=== PATIENT | female | born 1975 | race Caucasian/White ===

== ENCOUNTER → 2018-02-14 10:47 | Outpatient (CLI) | payer BC, SELFPAY ==
[2018-02-14 11:07] LABS: Basophils % 0.3 % (0.1-2.0); Eosinophils # 0.2 K/mm3 (0.0-0.4); Eosinophils % 2.6 % (0.1-12.0); Hematocrit 41.3 % (37.0-47.0); Hemoglobin 13.5 g/dL (12.2-16.2); Lymphocytes % 34.3 K/mm3 (10-50); Mean Corpuscular HGB Conc 32.6 g/dL (31.8-35.4); Mean Corpuscular Hemoglobin 28.8 pg (27.0-31.2); Mean Corpuscular Volume 88.3 fl (81-99); Monocytes # 0.4 K/mm3 (0.1-1.0); Monocytes % 6.3 % (1.7-9.3); Neutrophils # 3.3 K/mm3 (1.8-7.8); Neutrophils % 56.4 % (37.0-80.0); Platelet Count 346 K/mm3 (142-424); Red Blood Count 4.68 M/mm3 (4.20-5.40); Red Cell Distribution Width 12.8 % (11.5-17.5); White Blood Count 5.8 K/mm3 (4.8-10.8)
[2018-02-14 12:01] LABS: Alanine Aminotransferase 30 U/L (12-78); Albumin Level 3.4 gm/dL (3.4-5.0); Albumin/Globulin Ratio 0.9 (1.1-1.8); Alkaline Phosphatase 56 U/L (46-116); Anion Gap 6.3 mEq/L (5-15); Aspartate Amino Transferase 10 U/L (15-37); Bilirubin,Total 0.3 mg/dL (0.2-1.0); Blood Urea Nitrogen 9 mg/dL (7-18); Calcium 8.5 mg/dL (8.5-10.1); Carbon Dioxide 31 mmol/L (21.0-32.0); Chloride 105 mmol/L (98-107); Chol/HDL Ratio 5.2 (1-3.5); Cholesterol 197 mg/dL (140-200); Creatinine,Serum 0.83 mg/dL (0.55-1.02); Estimated Glomerular Filt Rate 76 ml/min (>60); GFR (African American) 92 ML/MIN (>60); Globulin 3.7 gm/dl (1.3-3.2); Glucose 94 mg/dL (74-106); HDL Cholesterol 38 mg/dL (29-89); LDL Cholesterol 136 mg/dL (0-130); Potassium 4.3 mmoL/L (3.5-5.1); Sodium 138 mmol/L (136-145); Thyroid Stimulating Hormone 2.71 uIU/ml (0.358-3.740); Total Protein,Serum 7.1 gm/dL (6.4-8.2); Triglycerides 114 mg/dL (30-200); VLDL Cholesterol 23 mg/dL (0-40)
== END ==
PROVIDERS: Visit Provider Nurse Practitioner Family
DX: E78.2 Mixed hyperlipidemia (principal); E03.9 Hypothyroidism, unspecified
CPT/HCPCS: 36415; 80053; 80061; 84443; 85025

== ENCOUNTER → 2018-06-03 10:13 | Outpatient (CLI) | payer BC, SELFPAY | PROVIDERS: Visit Provider Specialist | DX: G47.33 Obstructive sleep apnea (adult) (pediatric) (principal) | CPT/HCPCS: 94762 ==

== ENCOUNTER → 2019-04-04 10:59 | Outpatient (CLI) | payer BC, SELFPAY ==
[2019-04-04 12:10] LABS: Basophils % 0.6 % (0.1-2.0); Eosinophils # 0.1 K/mm3 (0.0-0.4); Eosinophils % 2.1 % (0.1-12.0); Hematocrit 43.4 % (37.0-47.0); Hemoglobin 13.9 g/dL (12.2-16.2); Lymphocytes # 2.4 K/mm3 (0.7-4.5); Mean Corpuscular Hemoglobin 29.8 pg (27.0-31.2); Monocytes # 0.3 K/mm3 (0.1-1.0); Monocytes % 4.6 % (1.7-9.3); Neutrophils % 51.7 % (37.0-80.0); Platelet Count 313 K/mm3 (142-424); Red Blood Count 4.66 M/mm3 (4.20-5.40); Red Cell Distribution Width 12.5 % (11.5-17.5); White Blood Count 5.8 K/mm3 (4.8-10.8)
[2019-04-04 13:48] LABS: Alanine Aminotransferase 21 U/L (12-78); Albumin Level 3.4 gm/dL (3.4-5.0); Albumin/Globulin Ratio 0.9 (1.1-1.8); Alkaline Phosphatase 44 U/L (46-116); Anion Gap 9.5 mEq/L (5-15); Aspartate Amino Transferase 15 U/L (15-37); Bilirubin,Total 0.5 mg/dL (0.2-1.0); Blood Urea Nitrogen 11 mg/dL (7-18); Calcium 8.5 mg/dL (8.5-10.1); Carbon Dioxide 30 mmol/L (21.0-32.0); Chloride 104 mmol/L (98-107); Chol/HDL Ratio 5.2 (1-3.5); Cholesterol 187 mg/dL (140-200); Creatinine,Serum 0.81 mg/dL (0.55-1.02); Estimated Glomerular Filt Rate 78 ml/min (>60); GFR (African American) 94 ML/MIN (>60); Globulin 3.8 gm/dl (1.3-3.2); Glucose 84 mg/dL (74-106); HDL Cholesterol 36 mg/dL (29-89); LDL Cholesterol 133 mg/dL (0-130); Potassium 4.5 mmoL/L (3.5-5.1); Sodium 139 mmol/L (136-145); Thyroid Stimulating Hormone 2.89 uIU/ml (0.358-3.740); Total Protein,Serum 7.2 gm/dL (6.4-8.2); Triglycerides 91 mg/dL (30-200); VLDL Cholesterol 18 mg/dL (0-40)
== END ==
PROVIDERS: Visit Provider Nurse Practitioner Family
DX: E78.2 Mixed hyperlipidemia (principal); E03.9 Hypothyroidism, unspecified; G47.33 Obstructive sleep apnea (adult) (pediatric)
CPT/HCPCS: 36415; 80053; 80061; 84443; 85025

== ENCOUNTER → 2020-05-14 09:57 | Outpatient (CLI) | payer BC, SELFPAY ==
[2020-05-14 10:51] LABS: Basophils % 0.3 % (0.1-2.0); Eosinophils # 0.2 K/mm3 (0.0-0.4); Eosinophils % 2.7 % (0.1-12.0); Hemoglobin 14.4 g/dL (12.2-16.2); Lymphocytes % 33.5 % (10-50); Mean Corpuscular HGB Conc 33.4 g/dL (31.8-35.4); Mean Corpuscular Hemoglobin 30.8 pg (27.0-31.2); Mean Corpuscular Volume 92.2 fl (81-99); Mean Platelet Volume 8.1 fl (7.4-10.4); Monocytes # 0.3 K/mm3 (0.1-1.0); Monocytes % 5.5 % (1.7-9.3); Neutrophils # 3.5 K/mm3 (1.8-7.8); Platelet Count 333 K/mm3 (142-424); Red Blood Count 4.67 M/mm3 (4.20-5.40)
[2020-05-14 11:08] LABS: Alanine Aminotransferase 18 U/L (12-78); Albumin Level 3.9 g/dl (3.5-5.0); Albumin/Globulin Ratio 1.2 (1.1-1.8); Alkaline Phosphatase 47 U/L (38-126); Anion Gap 13.3 mEq/L (5-15); Aspartate Amino Transferase 21 U/L (14-36); Bilirubin,Total 0.4 mg/dl (0.2-1.3); Blood Urea Nitrogen 16 mg/dl (7-17); Calcium 9.3 mg/dl (8.4-10.2); Carbon Dioxide 28 mmol/L (22.0-30.0); Chloride 104 mmol/L (98-107); Chol/HDL Ratio 6.2 (1-3.5); Cholesterol 191 mg/dl (140-200); Estimated Glomerular Filt Rate 69 ml/min (>60); GFR (African American) 83 ML/MIN (>60); Globulin 3.2 g/dL (1.3-3.2); Glucose 95 mg/dl (74-100); HDL Cholesterol 31 mg/dl (40-60); Potassium 4.3 mmoL/L (3.5-5.1); Sodium 141 mmol/L (136-145); Total Protein,Serum 7.1 g/dl (6.3-8.2); Triglycerides 176 mg/dl (30-150); VLDL Cholesterol 35 mg/dL (0-40)
[2020-05-14 11:18] LABS: Direct LDL Cholesterol 130.54 mg/dL (100-129)
[2020-05-14 11:39] LABS: Thyroid Stimulating Hormone 3.72 uIU/mL (0.465-4.68)
== END ==
PROVIDERS: Visit Provider Nurse Practitioner Family
DX: E78.5 Hyperlipidemia, unspecified (principal); E03.9 Hypothyroidism, unspecified; G47.33 Obstructive sleep apnea (adult) (pediatric)
CPT/HCPCS: 36415; 80053; 80061; 84443; 85025

== ENCOUNTER → 2021-04-08 10:19 | Outpatient (CLI) | payer BC, SELFPAY ==
[2021-04-08 11:12] LABS: Basophils # 0.1 K/mm3 (0-0.2); Basophils % 0.9 % (0.1-2.0); Eosinophils # 0.2 K/mm3 (0.0-0.4); Eosinophils % 3.1 % (0.1-12.0); Hematocrit 44.5 % (37.0-47.0); Hemoglobin 14.5 g/dL (12.2-16.2); Lymphocytes # 2.2 K/mm3 (0.7-4.5); Lymphocytes % 41.3 % (10-50); Mean Corpuscular HGB Conc 32.6 g/dL (31.8-35.4); Mean Corpuscular Hemoglobin 30.9 pg (27.0-31.2); Mean Corpuscular Volume 94.7 fl (81-99); Mean Platelet Volume 8.1 fl (7.4-10.4); Monocytes # 0.3 K/mm3 (0.1-1.0); Monocytes % 6.1 % (1.7-9.3); Neutrophils # 2.6 K/mm3 (1.8-7.8); Neutrophils % 48.5 % (37.0-80.0); Platelet Count 359 K/mm3 (142-424); Red Cell Distribution Width 12.8 % (11.5-17.5); White Blood Count 5.4 K/mm3 (4.8-10.8)
[2021-04-08 11:47] LABS: Chloride 104 mmol/L (98-107); Potassium 4.6 mmoL/L (3.5-5.1); Sodium 139 mmol/L (136-145)
[2021-04-08 11:49] LABS: Blood Urea Nitrogen 9 mg/dl (7-17)
[2021-04-08 11:50] LABS: Alanine Aminotransferase 38 U/L (12-78); Albumin Level 3.5 g/dl (3.5-5.0); Albumin/Globulin Ratio 1.1 (1.1-1.8); Alkaline Phosphatase 53 U/L (38-126); Anion Gap 11.6 mEq/L (5-15); Aspartate Amino Transferase 34 U/L (14-36); Bilirubin,Total 0.3 mg/dl (0.2-1.3); Calcium 8.7 mg/dl (8.4-10.2); Carbon Dioxide 28 mmol/L (22.0-30.0); Cholesterol 192 mg/dl (140-200); Estimated Glomerular Filt Rate 78 ml/min (>60); GFR (African American) 95 ML/MIN (>60); Globulin 3.1 g/dL (1.3-3.2); Glucose 97 mg/dl (74-100); Total Protein,Serum 6.6 g/dl (6.3-8.2); Triglycerides 145 mg/dl (30-150); VLDL Cholesterol 29 mg/dL (0-40)
[2021-04-08 11:51] LABS: Chol/HDL Ratio 6.4 (1-3.5); HDL Cholesterol 30 mg/dl (40-60)
[2021-04-08 12:02] LABS: Direct LDL Cholesterol 128.13 mg/dL (100-129)
== END ==
PROVIDERS: Visit Provider Nurse Practitioner Family
DX: Z00.00 Encounter for general adult medical examination without abnormal findings (principal); E03.9 Hypothyroidism, unspecified
CPT/HCPCS: 36415; 80053; 80061; 84443; 85025

== ENCOUNTER → 2021-08-28 10:57 | Outpatient (CLI) | payer BC, SELFPAY ==
--- NOTE | 2021-08-28 11:02 | MM_ITS ---
PROCEDURE INFORMATION: Exam: MG Bilateral Screening 3D Mammography Exam date and time: 08/28/2021 11:02 AM Age: 46 years old Clinical indication: Encounter for screening mammogram for malignant neoplasm of breast TECHNIQUE: Imaging protocol: Bilateral Screening tomosynthesis and 2D mammography including computer-aided detection (CAD) when performed. COMPARISON: No relevant prior studies available. FINDINGS: MAMMOGRAPHY: Breast composition: The breast tissue is composed of scattered areas of fibroglandular density. Mass: None. Architectural distortion: None. Calcifications: No suspicious calcifications. Asymmetric density: None. Skin thickening: None. Axillary adenopathy: None. IMPRESSION: No mammographic evidence of malignancy. Annual screening is recommended unless otherwise clinically indicated. ASSESSMENT: BI-RADS Category 1: Negative
== END ==
PROVIDERS: PCP Nurse Practitioner Family; Visit Provider Nurse Practitioner Family
DX: Z12.31 Encounter for screening mammogram for malignant neoplasm of breast (principal)
CPT/HCPCS: 77063; 77067

== ENCOUNTER → 2022-02-28 10:14 | Outpatient (CLI) | payer BC, SELFPAY ==
[2022-02-28 11:01] LABS: Basophils # 0.1 K/mm3 (0-0.2); Basophils % 1.2 % (0.1-2.0); Eosinophils # 0.1 K/mm3 (0.0-0.4); Eosinophils % 2.5 % (0.1-12.0); Hemoglobin 14.3 g/dL (12.2-16.2); Lymphocytes # 1.9 K/mm3 (0.7-4.5); Lymphocytes % 31.6 % (10-50); Mean Corpuscular HGB Conc 30.4 g/dL (31.8-35.4); Mean Corpuscular Hemoglobin 29.7 pg (27.0-31.2); Mean Corpuscular Volume 97.5 fl (81-99); Mean Platelet Volume 8.2 fl (7.4-10.4); Monocytes # 0.4 K/mm3 (0.1-1.0); Neutrophils # 3.4 K/mm3 (1.8-7.8); Neutrophils % 58.7 % (37.0-80.0); Platelet Count 323 K/mm3 (142-424); Red Blood Count 4.82 M/mm3 (4.20-5.40); White Blood Count 5.9 K/mm3 (4.8-10.8)
[2022-02-28 11:47] LABS: Chloride 106 mmol/L (98-107); Potassium 4.3 mmoL/L (3.5-5.1); Sodium 139 mmol/L (136-145)
[2022-02-28 11:50] LABS: Alanine Aminotransferase 50 U/L (12-78); Albumin/Globulin Ratio 1.3 (1.1-1.8); Alkaline Phosphatase 61 U/L (38-126); Anion Gap 11.3 mEq/L (5-15); Aspartate Amino Transferase 41 U/L (14-36); Blood Urea Nitrogen 16 mg/dl (7-17); Calcium 8.7 mg/dl (8.4-10.2); Carbon Dioxide 26 mmol/L (22.0-30.0); Estimated Glomerular Filt Rate 68 ml/min (>60); GFR (African American) 82 ML/MIN (>60); Globulin 3.1 g/dL (1.3-3.2); Glucose 101 mg/dl (74-100); Total Protein,Serum 7.1 g/dl (6.3-8.2)
[2022-02-28 11:53] LABS: Bilirubin,Total < 0.1 mg/dl (0.2-1.3)
[2022-02-28 12:21] LABS: Thyroid Stimulating Hormone 3.58 uIU/mL (0.465-4.68)
[2022-02-28 13:16] LABS: Vitamin B12 518 pg/mL (239-931)
[2022-02-28 13:18] LABS: Folate > 20.00 ng/mL
[2022-03-01 08:15] LABS: Triiodothyronine (T3) Free 2.9 pg/mL (2.0-4.4)
== END ==
PROVIDERS: PCP Nurse Practitioner Family; Visit Provider Specialist
DX: E03.9 Hypothyroidism, unspecified (principal); G47.10 Hypersomnia, unspecified
CPT/HCPCS: 36415; 80053; 82607; 82746; 84443; 84481; 85025

== ENCOUNTER → 2022-08-11 10:06 | Outpatient (CLI) | payer BC, SELFPAY ==
[2022-08-11 11:12] LABS: Basophils # 0.1 K/mm3 (0-0.2); Basophils % 1.1 % (0.1-2.0); Eosinophils # 0.2 K/mm3 (0.0-0.4); Hematocrit 44.7 % (37.0-47.0); Hemoglobin 14.6 g/dL (12.2-16.2); Lymphocytes # 1.9 K/mm3 (0.7-4.5); Lymphocytes % 36.4 % (10-50); Mean Corpuscular HGB Conc 32.5 g/dL (31.8-35.4); Mean Corpuscular Hemoglobin 30.5 pg (27.0-31.2); Mean Corpuscular Volume 93.8 fl (81-99); Mean Platelet Volume 8.2 fl (7.4-10.4); Monocytes # 0.3 K/mm3 (0.1-1.0); Monocytes % 6.3 % (1.7-9.3); Neutrophils # 2.7 K/mm3 (1.8-7.8); Neutrophils % 53.2 % (37.0-80.0); Platelet Count 339 K/mm3 (142-424); Red Blood Count 4.77 M/mm3 (4.20-5.40); Red Cell Distribution Width 12.9 % (11.5-17.5); White Blood Count 5.1 K/mm3 (4.8-10.8)
[2022-08-11 11:56] LABS: Chloride 107 mmol/L (98-107); Potassium 4.3 mmoL/L (3.5-5.1); Sodium 141 mmol/L (136-145)
[2022-08-11 11:59] LABS: Alanine Aminotransferase 41 U/L (12-78); Albumin Level 3.8 g/dl (3.5-5.0); Albumin/Globulin Ratio 1.2 (1.1-1.8); Alkaline Phosphatase 53 U/L (38-126); Anion Gap 12.3 mEq/L (5-15); Aspartate Amino Transferase 33 U/L (14-36); Bilirubin,Total 0.4 mg/dl (0.2-1.3); Blood Urea Nitrogen 14 mg/dl (7-17); Calcium 8.3 mg/dl (8.4-10.2); Carbon Dioxide 26 mmol/L (22.0-30.0); Cholesterol 186 mg/dl (140-200); Estimated Glomerular Filt Rate 68 ml/min (>60); GFR (African American) 82 ML/MIN (>60); Globulin 3.2 g/dL (1.3-3.2); Glucose 84 mg/dl (74-100); HDL Cholesterol 32 mg/dl (40-60); Triglycerides 102 mg/dl (30-150); VLDL Cholesterol 20 mg/dL (0-40)
[2022-08-11 12:00] LABS: Chol/HDL Ratio 5.8 (1-3.5)
[2022-08-11 12:11] LABS: Direct LDL Cholesterol 129.42 mg/dL (100-129)
[2022-08-11 12:17] LABS: Free T4 (Free Thyroxine) 1.12 ng/dl (0.78-2.19)
[2022-08-11 12:30] LABS: Thyroid Stimulating Hormone 3.03 uIU/mL (0.465-4.68)
== END ==
PROVIDERS: PCP Nurse Practitioner Family; Visit Provider Nurse Practitioner Family
DX: E03.9 Hypothyroidism, unspecified (principal); E78.5 Hyperlipidemia, unspecified; R05.3 Chronic cough; L30.9 Dermatitis, unspecified
CPT/HCPCS: 36415; 80053; 80061; 84439; 84443; 85025

== ENCOUNTER → 2023-04-12 15:56 | Outpatient (CLI) | payer BC, SELFPAY ==
--- NOTE | 2023-04-12 15:59 | MM_ITS ---
PROCEDURE INFORMATION: Exam: MG Bilateral Screening 3D Mammography Exam date and time: 04/12/2023 3:49 PM Age: 47 years old Clinical indication: Screening examination; No personal or family history of breast cancer TECHNIQUE: Imaging protocol: Bilateral Screening tomosynthesis and 2D mammography including computer-aided detection (CAD) when performed. COMPARISON: 1. MG MM DIG SCREENING MAMM BI W/CAD 08/28/2021 11:02 AM 2. MG MAMM 3D JOAO SCREENING 12/18/2017 8:40 AM FINDINGS: MAMMOGRAPHY: Breast composition: The breasts are almost entirely fatty. Mass: None. Architectural distortion: None. Calcifications: No suspicious calcifications. Asymmetric density: None. Skin thickening: None. Axillary adenopathy: None. IMPRESSION: No mammographic evidence of malignancy. Annual screening is recommended unless otherwise clinically indicated. ASSESSMENT: BI-RADS Category 1: Negative
== END ==
PROVIDERS: PCP Nurse Practitioner Family; Visit Provider Nurse Practitioner Family
DX: Z12.31 Encounter for screening mammogram for malignant neoplasm of breast (principal)
CPT/HCPCS: 77063; 77067

== ENCOUNTER → 2023-09-19 12:06 | Day surgery (SDC) | payer BC, SELFPAY ==
[2023-09-19] MEDS: LACTATED RINGERS 1000ML 1,000 ML 25 ML IV (12:33)
[2023-09-19 12:45] VITALS: BP 116/68; PULSE 81; RESP 20; TEMP 36.7; O2SAT 97; BMI 37.8
[2023-09-19 12:58] LABS: Urine Pregnancy, HCG Qual. Negative (Negative)
[2023-09-19 13:55] VITALS: O2SAT 100
--- NOTE | 2023-09-19 14:04 | P.PNANES_ITS ---
[facility] Disclaimer: The information contained in this section may have been updated after the patient was seen, as this information can be updated by other users. Medical History Hypothyroid Hypersomnia Severe sleep apnea Anxiety Surgical History Hx of bilateral breast reduction surgery History of tonsillectomy H/O: Family History Other Coronary artery disease Heart attack Hypertension Kidney disease Thyroid disorder Social History Smoking Status: Never smoker alcohol intake: never substance use type: denies use current occupational status: employed Travel in the last 8 weeks: None household members: spouse and children housing: house marital status: caffeine: Yes [facility] Anesthesia Checklist Patient Identification Patient Identification: Verbal (Name & ) Structural Data Admitted From: Home Planned Operative Procedure/s: colonoscopy Airway Assessment Mallampati Score:: Class II C-Spine Mobility Assessed: Yes TMJ Mobility Assessed: Yes Dentition: Good Dentition Neurological Assessment Level of Consciousness: Awake, Alert and Appropriate Anesthesia Plan Anesthesia Risk discussed: Yes Anesthesia Plan: Verified ASA Class: II Anesthesia Type: MAC
[2023-09-19 14:13] VITALS: BP 112/57; PULSE 84; RESP 16; TEMP 36.1; O2SAT 95
--- NOTE | 2023-09-19 14:15 | HMH.SCOPE ---
Procedure: Date: 09/19/23 Patient Date of :: 1975 Procedure Performed:: Screening colonoscopy & biopsies Indications:: Colon cancer screening Performing Provider:: Lucian Santoro MD Referring Provider:: Trudy Watson Sedation:: Propofol Procedure:: After placing the patient in the left lateral decubitus position, the colonoscopy was gently inserted into the rectum and under direct visualization advanced to the cecum which was identified by transillumination in the right lower quadrant, identification of the ileocecal valve, appendiceal orifice, and cecal strap. Color, texture, mucosa, and anatomy of the colon were carefully examined with the scope. Findings:: Anal canal: normal Rectum: 1.5 cm villous superficial mucosal lesion extending from the anal canal, biopsied Sigmoid colon: normal without polyps or inflammatory changes Descending colon: normal without polyps or inflammatory changes Splenic flexure: normal Transverse colon: normal without polyps or inflammatory changes Hepatic flexure: normal Ascending colon: normal without polyps or inflammatory changes Cecum: normal Terminal ileum: not visualized Impression:Villous/sessile mucosal lesion of the anal rectal region Specimens:: Rectum Recommendations:: Will most likely require surgical resection pending biopsy results F/U colonoscopy ONE year after additional evaluation Complications:: None Estimated blood obtained (mL): 0 Colonoscopy Component Colonoscopy Component Was a colonoscopy performed during today's procedure?: Yes Recommended follow up colonoscopy of at least 10 years?: No If no, follow up colonoscopy recommended in ___ years?: ONE Reason for not recommending >/= 10 yr follow-up interval?: Concerning lesions found
[2023-09-19 14:23] VITALS: BP 110/81; PULSE 83; RESP 16; O2SAT 98
[2023-09-19 14:33] VITALS: BP 115/50; PULSE 76; RESP 16; O2SAT 97
== END | disposition home or self-care (01) ==
PROVIDERS: PCP Nurse Practitioner Family; Visit Provider Internal Medicine Gastroenterology
PROC: 0DJD8ZZ Inspection of Lower Intestinal Tract, Via Natural or Artificial Opening Endoscopic (ICD-10-PCS; CPT 45378; principal; 2023-09-19 13:30)
DX: Z12.11 Encounter for screening for malignant neoplasm of colon (principal); K62.82 Dysplasia of anus
CPT/HCPCS: 45378; 81025; J2704

== ENCOUNTER 2024-02-20 15:18 | Outpatient (CLI) | payer BC, SELFPAY ==
--- NOTE | 2024-02-20 15:22 | US_ITS ---
PROCEDURE: US TRANSVAGINAL CLINICAL INDICATION: IRREG. MENST CYCLE/ HYPOTHYROIDISM COMPARISON: No exams were available for comparison FINDINGS: Transvaginal sonographic images of the pelvis were obtained. UTERUS: 10.9 cm x 4.5cmx 3.3cm retroverted with a combined endometrial thickness of 11.6mm. The uterine cavity as well as the lower cervix looks to be filled with blood clots. There is also what appears to be free fluid at the uterine fundus. LEFT OVARY: Not visualized secondary to bowel. RIGHT OVARY: 4.7 cmx 3.8 cmx3.6 cm with a volume of 34ml. There is a multicystic area within the right ovary measuring 2.9 cm x 2.6 cm x 2.7 cm. There is a small cystic area within this larger cyst measuring 1.7 cm x 1.9 cm x 1.6 cm. There is a small amount of fluid around the right ovary. Both ovaries are seen and appear normal. Doppler flow to both ovaries are seen. There is no fluid in the cul-de-sac. IMPRESSION: 1. Retroverted midline uterus upper limits of normal in size. The endometrium is thickened and the entire endometrial cavity as well as the cervix is filled with clot and likely blood. 2. Left ovary is not visualized secondary to bowel in the way. 3. Right ovary has a multi cystic area with a larger cyst containing a smaller cyst. 4. There is a small amount of fluid around the right ovary. 5. No fluid in the cul-de-sac. 6. Suggest a gynecology consult. Dictated by: Dhruv Martin MD 02/20/2024 17:33 Dhruv Martin MD in OV 02/20/2024 17:33
--- NOTE | 2024-02-20 15:22 | US_ITS ---
FINAL REPORT CLINICAL HISTORY: hypothyroidism COMPARISON: None FINDINGS: Sonographic images of the thyroid gland were obtained. The right thyroid lobe measures 51 mm in length. The left thyroid lobe measures 42 mm in length. The thyroid isthmus measures 3 mm. There is a heterogeneous echotexture. Several nodules are noted in the right lobe of the thyroid. The largest measuring 13 mm is a solid hypoechoic TR 4 nodule. IMPRESSION: Right TR 4 nodule. Recommend follow-up ultrasound in 6 to 12 months per TI-RADS criteria. Reviewed, Interpreted and Dictated by João Taylor III, MD Transcribed by Richa Sahu Authenticated and . [facility]
[2024-02-20 16:21] LABS: Basophils % 0.4 % (0.1-2.0); Eosinophils # 0.1 K/mm3 (0.0-0.4); Eosinophils % 1.3 % (0.1-12.0); Hematocrit 41.3 % (37.0-47.0); Hemoglobin 13.9 g/dL (12.2-16.2); Lymphocytes # 1.6 K/mm3 (0.7-4.5); Lymphocytes % 14.5 % (10-50); Mean Corpuscular HGB Conc 33.6 g/dL (31.8-35.4); Mean Corpuscular Hemoglobin 31.3 pg (27.0-31.2); Mean Corpuscular Volume 93.4 fl (81-99); Monocytes # 0.3 K/mm3 (0.1-1.0); Neutrophils # 8.7 K/mm3 (1.8-7.8); Neutrophils % 80.8 % (37.0-80.0); Platelet Count 326 K/mm3 (142-424); Red Blood Count 4.42 M/mm3 (4.20-5.40); Red Cell Distribution Width 13.5 % (11.5-17.5); White Blood Count 10.7 K/mm3 (4.8-10.8)
[2024-02-20 16:44] LABS: Alanine Aminotransferase 18 U/L (12-78); Albumin Level 3.7 g/dl (3.5-5.0); Albumin/Globulin Ratio 1.1 (1.1-1.8); Alkaline Phosphatase 56 U/L (38-126); Anion Gap 10.3 mEq/L (5-15); Aspartate Amino Transferase 23 U/L (14-36); Bilirubin,Total 0.4 mg/dl (0.2-1.3); Blood Urea Nitrogen 13 mg/dl (7-17); Calcium 8.7 mg/dl (8.4-10.2); Carbon Dioxide 27 mmol/L (22.0-30.0); Chloride 106 mmol/L (98-107); Estimated Glomerular Filt Rate 67 ml/min (>60); GFR (African American) 82 ML/MIN (>60); Globulin 3.5 g/dL (1.3-3.2); Glucose 93 mg/dl (74-100); Potassium 4.3 mmoL/L (3.5-5.1); Sodium 139 mmol/L (136-145); Total Protein,Serum 7.2 g/dl (6.3-8.2)
[2024-02-20 17:13] LABS: Thyroid Stimulating Hormone 2.99 uIU/mL (0.465-4.68)
[2024-02-22 11:12] LABS: FSH 3.3 mIU/mL (.); LH 9.4 mIU/mL (.)
== END 2024-02-20 23:59 | disposition home or self-care (01) ==
PROVIDERS: PCP Nurse Practitioner Family; Visit Provider Nurse Practitioner Family
DX: E03.9 Hypothyroidism, unspecified (principal); N92.6 Irregular menstruation, unspecified
CPT/HCPCS: 36415; 76536; 76830; 80050; 80053; 82670; 83001; 83002; 84443; 85025

== ENCOUNTER 2024-05-01 07:24 | Outpatient (CLI) | payer BC, SELFPAY ==
--- NOTE | 2024-05-01 07:25 | US_ITS ---
PROCEDURE: US TRANSVAGINAL CLINICAL INDICATION: right ovarian cyst, and abnormal uterine bleeding COMPARISON: US US TRANSVAGINAL from 02/20/2024 FINDINGS: Transvaginal sonographic images of the pelvis were obtained. UTERUS: 11.2cm x 6.1cmx 5.3cm anteverted with a combined endometrial thickness of 17.2mm. There is a nabothian cyst in the cervix measuring 0.8 cm x 0.5 cm Within the uterine cavity and cervix there is active bleeding as well as significant clot. LEFT OVARY: 2.2cmx1.4cmx1.2cm with a volume of 1.9ml. RIGHT OVARY: 1.7 cmx 1.4cmx2.3cm with a volume of 2.9ml. There is a follicle measuring 1.2 cm x 0.9 cm x 1.1 cm The previously described complex cystic area in the right ovary has resolved. Both ovaries are seen and appear normal. Doppler flow to both ovaries are seen. There is no fluid in the cul-de-sac. IMPRESSION: 1. Anteverted, enlarged uterus. The endometrium is markedly thickened measuring 17.2 mm and active bleeding is seen. There is a large clot in the lower uterine segment and cervix. 2. Both left and right ovaries are seen and appear normal. There is a 1.2 cm follicle in the right ovary. The previously described multi cystic area in the right ovary has completely resolved. 3. No fluid in the cul-de-sac. Dictated by: Dhruv Martin MD 05/02/2024 07:32 Dhruv Martin MD in OV 05/02/2024 07:32
== END 2024-05-01 23:59 | disposition home or self-care (01) ==
PROVIDERS: PCP Nurse Practitioner Family; Visit Provider Obstetrics & Gynecology
DX: N93.9 Abnormal uterine and vaginal bleeding, unspecified (principal); N83.201 Unspecified ovarian cyst, right side
CPT/HCPCS: 76830

== ENCOUNTER 2024-10-07 14:31 | Outpatient (CLI) | payer BC, SELFPAY ==
--- NOTE | 2024-10-07 14:34 | US_ITS ---
FINAL REPORT TECHNIQUE: Sonographic images of the thyroid gland were obtained in the longitudinal and transverse planes. CLINICAL HISTORY: thyroid NODULE COMPARISON: 02/20/2024 FINDINGS: The right lobe measures 1.6 x 4.6 x 1.5 cm. The right lobe is diffusely heterogeneous. Previously seen deep, hypoechoic nodule is not identified on today's exam. What was measured as a second nodule appears to be heterogeneous tissue today. No new nodule is identified. The left lobe measures 1.6 x 4.1 x 1.4 cm. The left lobe is diffusely heterogeneous. There is no discrete nodule. The isthmus measures 4 mm. There is an 8 mm cystic lesion in the left isthmus which in retrospect is unchanged from the prior exam. IMPRESSION: Diffusely heterogeneous thyroid is concerning for thyroiditis. Previously seen right thyroid nodules are not identified on today's exam. There is no new abnormality. Reviewed, Interpreted and Dictated by Addis Barry MD Transcribed by Aranza Andrews Authenticated and [facility]
== END 2024-10-07 23:59 | disposition home or self-care (01) ==
LOC: RAD 14:32
PROVIDERS: PCP Nurse Practitioner Family; Visit Provider Nurse Practitioner Family
DX: E04.1 Nontoxic single thyroid nodule (principal)
CPT/HCPCS: 76536

== ENCOUNTER 2024-12-29 07:51 | Outpatient (CLI) | payer BC, SELFPAY ==
--- OUTSIDE RECORDS SUMMARY | 2024-10-17 17:30 | XMS_ITS ---
Author Organization [facility] Address [address] [place] [address] Care Team Providers Care Training Analyst Name Role Phone Trudy Watson Primary Care Provider Migration, Provider Unavailable Unavailable [facility] Encounter Medications Medication SIG (Take, Route, Frequency, Duration) Notes Start Date End Date Status Zoloft 50 MG 1 tab(s) orally once a day for 90 days Active Synthroid 125 MCG 1 tab(s) orally once a day for 90 days Active Wellbutrin XL 150 MG 1 tab(s) orally every 24 hours for 90 days Active Famotidine 40 MG 1 tab(s) orally once a day (at bedtime) for 90 days Active Mupirocin 2 % 1 darrian applied topically every morning for 10 days 08/19/2024 Active Xyzal Allergy 24HR 5 MG 1 tab orally once a day 09/04/2015 Active CPAP MACHINE WITH ADULT SETUP DIRECTED *Please review for potential replacement for e-prescription and drug interaction check* 03/28/2017 Active Magnesium 400MG 1 TABLET BID 500mg *Please re view and pick correct strength[facility]formulation [facility] options. If intended option is not shown, discontinue and re-order from Quick Search* Active Encounters Encounter Location Date Provider Diagnosis [facility] [address] [place] [address] 10/17/2024 Provider Migration Gastroesophageal reflux disease, unspecified whether esophagitis present K21.9 Assessments Encounter Date Diagnosis (ICD Code) Assessment Notes Treatment Notes Treatment Clinical Notes Section Notes 10/17/2024 Gastroesophageal reflux disease, unspecified whether esophagitis present (ICD-10 - K21.9) Plan Of Treatment Medication Medication Name Sig Start Date Stop Date Notes Zoloft 50 MG 1 tab(s) orally once a day for 90 days Synthroid 125 MCG 1 tab(s) orally once a day for 90 days Wellbutrin XL 150 MG 1 tab(s) orally damon ry 24 hours for 90 days Famotidine 40 MG 1 tab(s) orally once a day (at bedtime) for 90 days Progress Notes * Lisette RINCON GDOB:1975 (49 yo F)Acc No.[id number]:10/17/2024 Patient: Lisette RODAS Provider: Kiran Ambriz :1975 A ge:49 Y S ex:Female Date:10/17/2024 Address:[address] [place], [place] [id number] Pcp:Trudy Watson Subjective: * Chief Complaints: * 1 . Multum To Medispan Conversion Encounter. * Medical History: * Medications: T aking CPAP MACHINE WITH ADULT SETUP DIRECTED , Notes to Pharmacist: *Please review for potential replacement for e-prescription and drug interaction check*, Taking Xyzal Allergy 24HR 5 MG Tablet 1 tab orally once a day , Taking Magnesium 400MG 1 TABLET BID , Notes to Pharmacist: 500mg *Please review and [facility]. If intended option is not shown, discontinue and re-order from Quick Search*, Taking Mupirocin 2 % Ointment 1 darrian applied topically every morning Objective: * Vitals: Assessment: * Assessment: 1. G astroesophageal reflux disease, unspecified whether esophagitis present - K21.9 Plan: * Treatment: 2. O thers Refill Zoloft Tablet, 50 MG, 1 tab(s), orally, once a day, 90 days, 90 Tablet, Refills 1; R efill Wellbutrin XL Tablet Extended Release 24 Hour, 150 MG, 1 tab(s), orally, every 24 hours, 90 days, 90, Refills 1; R efill Synthroid Tablet, 125 MCG, 1 tab(s), orally, once a day, 90 days, 90 Tablet, Refills 1. * * Electronic signature of Prov ider Migration on 12/29/2024 at 07:53 AM EDT Sign off status: Pending * Provider: Kiran eaton Migration Date: 0 10/17/2024 Generated for Manjit mackay/Satya/Mercedezitting on: 0 12/29/2024 07:53 AM EDT
--- OUTSIDE RECORDS SUMMARY | 2024-12-29 07:54 | XMS_ITS | Patient Health Record ---
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 pg/mL Adult Female Range Follicular phase 12.5 - 166.0 Ovulation phase 85.8 - 498.0 Luteal phase 43.8 - 211.0 Postmenopausal <6.0 - 54.7 1st trimester 215.0 - >4300.0 Lidia ECLIA methodology Performed at: [facility] [address] [id number] Casual Shoe Inspector: Gonzalez Cade PhD, Phone: [phone] M-LH Reviewed date:02/23/2024 02:26:50 PM Interpretation: Performing Lab: Notes/Report: LH 9.4 . mIU/mL Adult Female Range Follicular phase 2.4 - 12.6 Ovulation phase 14.0 - 95.6 Luteal phase 1.0 - 11.4 Postmenopausal 7.7 - 58.5 M-FSH Reviewed date:02/23/2024 02:26:41 PM Interpretation: Performing Lab: Notes/Report: FSH 3.3 . mIU/mL Adult Female Range Follicular phase 3.5 - 12.5 Ovulation phase 4.7 - 21.5 Luteal phase 1.7 - 7.7 Postmenopausal 25.8 - 134.8 Performed at: [facility] [address] [id number] Casual Shoe Inspector: Gonzalez Cade PhD, Phone: [phone] M-Thyroid Stimulating Hormon e Reviewed date:02/23/2024 02:27:46 PM Interpretation: Performing Lab: Notes/Report: TSH 2.99 0.465-4.68 uIU/mL M-Complete Blood Count Auto Diff Reviewed date:02/23/2024 02:37:23 PM Interpretation: Performing Lab: Notes/Report: WBC 10.7 4.8-10.8 K/mm3 RBC 4.42 4.20-5.40 M/mm3 HGB 13.9 12.2-16.2 g/dL HCT 41.3 37.0-47.0 % MCV 93.4 81-99 fl MCH 31.3 27.0-31.2 pg MCHC 33.6 31.8-35.4 g/dL RDW 13.5 11.5-17.5 % PLT 326 142-424 K/mm3 MPV 8.0 7.4-10.4 fl NE% 80.8 37.0-80.0 % LY% 14.5 10-50 % MO% 3.0 1.7-9.3 % EO% 1.3 0.1-12.0 % BA% 0.4 0.1-2.0 % NE# 8.7 1.8-7.8 K/mm3 LY# 1.6 0.7-4.5 K/mm3 MO# 0.3 0.1-1.0 K/mm3 EO# 0.1 0.0-0.4 K/mm3 BA# 0.0 0-0.2 K/mm3 M-Comprehensive Metabolic Pa pedro Reviewed date:02/24/2024 10:49:28 AM Interpretation: Performing Lab: Notes/Report: NA 139 136-145 mmol/L K 4.3 3.5-5.1 mmoL/L CL 106 98-107 mmol/L CO2 27 22.0-30.0 mmol/L GAP 10.3 5-15 mEq/L BUN 13 7-17 mg/dl CREATT 0.90 0.52-1.04 mg/dl GFRAA 82 >60 ML/MIN EGFR 67 >60 ml/min GLU 93 74-100 mg/dl CA 8.7 8.4-10.2 mg/dl BILIT 0.4 0.2-1.3 mg/dl AST 23 14-36 U/L ALT 18 12-78 U/L TP 7.2 6.3-8.2 g/dl ALB 3.7 3.5-5.0 g/dl GLOB 3.5 1.3-3.2 g/dL AGRATIO 1.1 1.1-1.8 ALP 56 38-126 U/L Ultrasound : Pelvis, Transva ginal Reviewed date:02/24/2024 05:37:32 PM Interpretation: Performing Lab: Notes/Report: Ultrasound : Thyroid Reviewed date:02/25/2024 02:06:22 PM Interpretation: Performing Lab: Notes/Report: Ultrasound : Thyroid Reviewed date:10/13/2024 03:25:06 PM Interpretation: Performing Lab: Notes/Report: FSH Reviewed date:09/04/2024 12:22:17 PM Interpretation: Performing Lab: Notes/Report: FSH 3.2 Adult Female Range Follicular phase 3.5 - 12.5 Ovulation phase 4.7 - 21.5 Luteal phase 1.7 - 7.7 Postmenopausal 25.8 - 134.8 Performed at: [address] [id number] Casual Shoe Inspector: Gonzalez Cade PhD, Phone: [phone] SENT TO REFERENCE LAB Note Unless otherwise noted testing performed at: [place] [id number] Jerzy Hernandez MD CLIA: [id number] COMP METABOLIC PANEL Reviewed date:09/03/2024 05:03:59 PM Interpretation: Performing Lab: Notes/Report: SODIUM 137 136-145 mmol/L POTASSIUM 4.2 3.5-5.1 mmol/L CHLORIDE 102 98-107 mmol/L CARBON DIOXIDE 30 21-32 mmol/L ANION GAP 5.0 GLUCOSE 89 70-110 mg/dL BLOOD UREA NITROGEN 10 7-18 mg/dL CREATININE 0.9 0.6-1.0 mg/dL BUN/CREATININE RATIO 11.1 9-21 ESTIMATED GLOM FILTRATION RATE 79 >60- mL/mi n GFR LIMITATION: The eGFR equation CKD-EPI 2020 is not applicable for pediatric patients or greater than 90 years of age. The following conditions may alter the GFR result: extremes in body size, malnutrition or obesity, skeletal muscle disease, paraplegia or quadriplegia, vegetarian diet or rapidly changing kiney function. TOTAL PROTEIN 7.0 6.4-8.2 g/dL ALBUMIN 3.1 3.4-5.0 g/dL CALCIUM 8.7 8.5-10.1 mg/dL CORRECTED CALCIUM 9.4 8.5-10.1 mg/dL BILIRUBIN TOTAL 0.3 0.4-1.5 mg/dL AST (SGOT) 16 15-37 U/L ALT (SGPT) 31 12-78 U/L ALK PHOSPHATASE 54 50-120 U/L Note Unless otherwise noted testing performed at: [address] [address] Jerzy Hernandez MD CLIA: [id number] LIPID PANEL Reviewed date:09/03/2024 05:03:59 PM Interpretation: Performing Lab: Notes/Report: FASTING ?: FASTING TRIGLYCERIDE 178 20-200 mg/dL The National Cholesterol Education Program (NCEP) has set the following guidelines for Fasting Triglycerides: NORMAL: <150 mg/dL BORDERLINE HIGH: 150 - 199 mg/dL HIGH: 200 - 499 mg/dL VERY HIGH: > or =500 mg/dL CHOLESTEROL 198 0-200 mg/dL The National Cholesterol Education Program (NCEP) has set the following guidelines for Fasting Cholesterol: DESIRABLE: <200 mg/dL BORDERLINE HIGH: 200 - 239 mg/dL HIGH: > or =240 mg/dL HDL CHOLESTEROL 47 60- mg/dL The National Cholesterol Education Program (NCEP) has set the following guidelines for Fasting HDL Cholesterol: LOW HDL: <40 mg/dL NORMAL: 40 - 60 mg/dL DESIRABLE: >60 mg/dL LDL CALCULATED 115 100- mg/dL The National Cholesterol Education Program (NCEP) has set the following guidelines for Fasting LDL Cholesterol: OPTIMAL: < 100 mg/dL LOW RISK: 100 - 129 mg/dL BORDERLINE HIGH: 130 - 159 mg/dL HIGH: 160 - 189 mg/dL VERY HIGH: > or = 190 mg/dL CHOL/HDL RATIO 4 -5 Note Unless otherwise noted testing performed at: [address] [address] Jerzy Hernandez MD CLIA: [id number] THYROID STIMULATING HORMONE Reviewed date:09/03/2024 05:03:59 PM Interpretation: Performing Lab: Notes/Report: THYROID STIMULATING HORMONE 2.60 0.34-4.80 mIU /mL Note Unless otherwise noted testing performed at: [address] [address] Jerzy Hernandez MD CLIA: [id number] CBC AUTO W DIFF Reviewed date:09/03/2024 05:04:00 PM Interpretation: Performing Lab: Notes/Report: WBC 7.1 4.5-11.5 10 RBC 4.55 4.25-5.57 10 HGB 13.3 12.0-15.7 g/dL HCT 41.1 36.0-47.0 % MCV 90.3 80-95 fl MCH 29.2 27.0-34.0 pg MCHC 32.4 32.0-36.0 g/dL PLATELET COUNT 296 150-450 10 RDW 13.2 12.3-15.1 % MPV 8.9 7.4-10.4 fl GRANULOCYTE% 58.9 40-75 % LYMPHOCYTE% 29.6 15-57 % MONOCYTE% 8.2 4.0-12.0 % EOSINOPHIL% 1.8 0.0-4.0 % BASOPHIL% 0.4 0.0-1.0 % IMMATURE GRANULOCYTES % 1.1 0.0-0.8 % GRANULOCYTE# 4.18 LYMPHOCYTE# 2.10 MONOCYTE# 0.58 EOSINOPHIL# 0.13 BASOPHIL# 0.03 IMMATURE GRANULOCYTES # 0.08 MANUAL DIFFERENTIAL NO Note Unless otherwise noted testing performed at: [address] [address] Jerzy Hernandez MD CLIA: [id number] Medications Medication SIG (Take, Route, Frequency, Duration) Notes Start Date End Date Status Magnesium 400MG 1 TABLET BID 500mg *Please review and pick correct strength-formulatio n from Medispan options. If intended option is not shown, discontinue and re-order from Quick Search* Active Xyzal Allergy 24HR 5 MG 1 tab orally once a day 09/04/2015 Active CPAP MACHINE WITH ADULT SETUP DIRECTED *Please review for potential replacement for e-prescription and drug interaction check* 03/28/2017 Active Famotidine 40 MG 1 tab(s) orally once a day (at bedtime) for 90 days Active Synthroid 125 MCG 1 tab(s) orally once a day for 90 days Active Clobetasol Propionate 0.05 % 1 application Externally Twice a day for 10 days 10/28/2024 Active Wellbutrin XL 150 MG 1 tab(s) orally every 24 hours for 90 days Active Zoloft 50 MG 1 tab(s) orally once a day for 90 days Active Immunizations Vaccine Route Administration Date Status Comme nts Covid Pfizer Unknown 03/01/2021 Administered Covid Pfizer Unknown 03/27/2021 Administered Adacel (Tdap) Unknown 10/03/2021 Administered Problems Problem Type SNOMED Code ICD Code Onset Dates Problem Status W/U Status Risk Notes Problem 76367103 Obstructive slee p apnea (adult) (pediatric) (G47.33) Active confirmed Problem Chronic rhinitis (97212504) Chronic rhinitis (J31.0) Active confirmed Problem 526209341 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) Active confirmed Problem 87742648 Depression with anxiety (F41.8) Active confirmed Problem 83875969 Hypothyroidism (E03.9) Active confirmed Problem 109669116 BMI 38.0-38.9,ad ult (Z68.38) Active confirmed Problem 897772207 Thyroid nodule (E04.1) Active confirmed Problem 49978367 Chronic fatigue (R53.82) Active confirmed Problem 65469182 Irregular menstr ual cycle (N92.6) Active confirmed Problem 18462723 Mild hyperlipide jos (E78.5) Active confirmed Problem 209863737 Gastroesophageal reflux disease, unspecified whether esophagitis present (K21.9) Active confirmed Vital Signs Heart Rate 78 /min 10/28/2024 Temperature 98 degrees Fahrenheit 10/28/2024 Blood pressure diastolic 80 mm Hg 10/28/2024 Height 5 ft 4 in in 10/28/2024 Blood pressure systolic 124 mm Hg 10/28/2024 Weight 223 lbs 10/28/2024 BMI 38.27 kg/m2 10/28/2024 Encounters Encounter Location Date Provider Diagnosis [facility] [address] [place] [address] 10/17/2024 Provider Migration Gastroesophageal reflux disease, unspecified whether esophagitis present K21.9 [facility] [address] [address] 02/12/2024 Trudy Watson Irregular menstrual cycle N92.6 ; Gastroesophageal reflux disease, unspecified whether esophagitis present K21.9 and Hypothyroidism E03.9 [facility] [address] [address] 08/19/2024 Trudy Watson Facial dermatitis L3 0.9 [facility] [address] [facility] [address] [place], [place] [address] 09/03/2024 Trudy Watson Hypothyroidism E03.9 ; Routine medical exam Z00.00 ; Obstructive sleep apnea (adult) (pediatric) G47.33 ; Depression with anxiety F41.8 ; Mild hyperlipidemia E78.5 ; BMI 38.0-38.9,adult Z68.38 ; History of HPV infection Z86.19 ; Thyroid nodule E04.1 and Visit for screening mammogram Z12.31 [facility] [address] [address] 10/28/2024 Trudy Watson Dermatitis L30.9 [facility] [address] [facility] [address] [place], [place] [address] 08/19/2024 Trudy Watson Hypothyroidism E03.9 ; Mild hyperlipidemia E78.5 ; Irregular menstrual cycle N92.6 and Routine medical exam Z00.00 [facility] [address] [facility] [address] [place], [place] [address] 09/03/2024 Trudydaryn PoeShirley Gastroesophageal ref lux disease, unspecified whether esophagitis present K21.9 [facility] [address] [facility] [address] [place] [address] 04/10/2024 Trudydaryn PoeShirley [facility] [address] [facility] [address] [place] [address] 07/10/2024 Trudy Poeence Assessments Encounter Date Diagnosis (ICD Code) Assessment Notes Treatment Notes Treatment Clinical Notes Section Notes 02/12/2024 Irregular menstrual cycle (ICD-10 - N92.6) 02/12/2024 Gastroesophageal reflux disease, unspecified whether esophagitis present (ICD-10 - K21.9) 08/19/2024 Hypothyroidism (ICD-10 - E03.9) 08/19/2024 Mild hyperlipidemia (ICD-10 - E78.5) 10/17/2024 Gastroesophageal reflux disease, unspecified whether esophagitis present (ICD-10 - K21.9) 10/28/2024 Dermatitis (ICD-10 - L30.9) gutate psoriasis? rec topical steroid and that she FU with her deputy clerk for possible biopsy if they feel that is indicated 09/03/2024 Gastroesophageal reflux disease, unspecified whether esophagitis present (ICD-10 - K21.9) 09/03/2024 Hypothyroidism (ICD-10 - E03.9) well controlled, continue current dose of replacement 09/03/2024 Routine medical exam (ICD-10 - Z00.00) Well Visit, Ages 18 to 65: Care Instructions material was published encouraged better diet with higher protein content, multivitamin with calcium and vitamin D daily, routine exercise with goal of weight loss 08/19/2024 Facial dermatitis (ICD-10 - L30.9) some features of both folliculitis and contact dermatitis...rec treatment as noted and FU in 2 weeks, sooner with any increasing concern 09/03/2024 Obstructive sleep apnea (adult) (pediatric) (ICD-10 - G47.33) Continue CPAP 08/19/2024 Irregular menstrual cycle (ICD-10 - N92.6) 02/12/2024 Hypothyroidism (ICD-10 - E03.9) 08/19/2024 Routine medical exam (ICD-10 - Z00.00) 09/03/2024 Depression with anxiety (ICD-10 - F41.8) continue wellbutrin, sertraline 09/03/2024 Mild hyperlipidemia (ICD-10 - E78.5) improved, continue diet modification 09/03/2024 BMI 38.0-38.9,adult (ICD-10 - Z68.38) 09/03/2024 History of HPV infection (ICD-10 - Z86.19) 09/03/2024 Thyroid nodule (ICD-10 - E04.1) 09/03/2024 Visit for screening mammogram (ICD-10 - Z12.31) Plan Of Treatment Pending Test Test Name Order Date Urinalysis 08/02/2014 Physical Therapy 04/20/2010 Mammogram : Bilateral 09/03/2024 Holter Monitor, 48 hour 02/13/2017 H-CBC with AUTO DIFF 01/30/2014 H-CBC with AUTO DIFF 09/13/2008 H-CBC with AUTO DIFF 04/11/2011 H-CMP 04/11/2011 H-CMP 01/30/2014 H-CMP 09/13/2008 H-LIPID PANEL 01/30/2014 H-LIPID PANEL 10/12/2011 H-TSH 09/13/2008 H-TSH 01/30/2014 H-TSH 04/26/2010 H-TSH 04/11/2011 C-WET PREP, VAGINAL 01/09/2010 h-leutinizing hormone 10/12/2011 Rapid Flu, A 09/12/2011 Rapid Flu, B 09/12/2011 M-Complete Blood Count Auto Diff 024 M-Complete Blood Count Auto Diff 019 M-Comprehensive Metabolic Panel 03/25/20 19 M-Comprehensive Metabolic Panel 02/12/20 24 M-Lipid Panel 03/25/2019 M-Thyroid Stimulating Hormone 02/12/2024 M-Thyroid Stimulating Hormone 03/25/2019 M-Thyroid Stimulating Hormone 09/09/2023 M-Estradiol 02/12/2024 M-LH 02/12/2024 M-FSH 02/12/2024 COMP METABOLIC PANEL 08/19/2024 LIPID PANEL 08/19/2024 CBC AUTO W DIFF 08/19/2024 FSH 08/19/2024 TSH REFLEX ([facility]) 08/19/2024 Insurance Providers Payer Name Payer Address Payer Phone Subscriber Number Group Number Insured Name Patient Relationship to Insured Coverage Start Date Coverage End Date [facility] [address] [place] [address] [id number] Lisette Martinez Self - patient is the insured Medications Administered Medication Instructions Date of Administration Dosage Notes Triamcinolone Acetonide 40mg Injection 08/20/2018 1 mL Kenalog 05/18/2013 1 mL Medical (General) History Medical History History ICD Code Hypothyroidism spinal stenosis herniated disc seasonal allergies sleep apnea, dx home sleep study 2017, o n CPAP followed by Dr Moser Depression HPV lesion noted during colonoscopy, Res ected at [facility] Surgical History Surgery Date(Month/Year) 2004 tonsillectomy 1982 breast reduction 05/2023 Polyp removed 06/02/2024 Hospitalization History Reason Date(Month/Year) tonsillectomy 1982
--- NOTE | 2024-12-29 08:00 | MM_ITS ---
PROCEDURE INFORMATION: Exam: MG Bilateral Screening 3D Mammography Exam date and time: 12/29/2024 7:58 AM Age: 49 years old Clinical indication: Screening examination TECHNIQUE: Imaging protocol: Bilateral Screening tomosynthesis and 2D mammography including computer-aided detection (CAD) when performed. COMPARISON: 1. MG MM DIG SCREENING MAMM BI W/CAD 04/12/2023 3:49 PM 2. MG MM DIG SCREENING MAMM BI W/CAD 08/28/2021 11:02 AM FINDINGS: MAMMOGRAPHY: Breast composition: The breasts are almost entirely fatty. Mass: None. Architectural distortion: None. Calcifications: No suspicious calcifications. Asymmetric density: None. Skin thickening: None. Axillary adenopathy: None. IMPRESSION: No mammographic evidence of malignancy. Annual screening is recommended unless otherwise clinically indicated. ASSESSMENT: BI-RADS Category 1: Negative.
== END 2024-12-29 23:59 | disposition home or self-care (01) ==
LOC: RAD 07:52
PROVIDERS: PCP Nurse Practitioner Family; Visit Provider Obstetrics & Gynecology
DX: Z12.31 Encounter for screening mammogram for malignant neoplasm of breast (principal); R92.313 Mammographic fatty tissue density, bilateral breasts
CPT/HCPCS: 77063; 77067